=== PATIENT | female | born 1990 | race Caucasian/White ===

== ENCOUNTER 2019-09-16 09:24 | Inpatient (IN) | payer MEDICAID ==
[~2019-09-16] VITALS: Ht 162.6 cm; Wt 79.9 kg
[2019-09-16 10:41] LABS: Urine Bacteria NONE SEEN /hpf (None Seen); Urine Blood Negative /uL (Negative); Urine Mucus FEW (None Seen); Urine Specific Gravity 1.029 (1.001-1.035); Urine WBC 2 /hpf (0 - 5)
[2019-09-16 10:45] LABS: Basophils # (auto) 0 uL; Basophils % (auto) 0.3 % (0.0-2.0); Eosinophils # (auto) 0.1 uL; Eosinophils % (auto) 2.1 % (0.0-7.0); Hematocrit 41.9 % (36.0-46.0); Hemoglobin 14.1 g/dL (12.2-16.2); Lymphocytes # (auto) 1.5 uL; Lymphocytes % (auto) 25.7 % (10.0-50.0); Mean Corpuscular Hemoglobin 29.2 pg (28.0-32.0); Mean Corpuscular Hgb Conc. 33.7 g/dL (32.0-36.0); Mean Corpuscular Volume 86.8 fL (80.0-100.0); Monocytes # (auto) 0.3 uL; Monocytes % (auto) 5.7 % (0.0-12.0); Neutrophils # (auto) 3.9 uL; Neutrophils % (auto) 66.2 % (37.0-80.0); Nucleated Red Blood Cells % 0.1 %; Platelet Count (auto) 207 10^3/uL (140-450); Red Blood Cells 4.83 10^6/uL (4.0-5.20); Red Cell Distribution Width 13.7 % (11.8-14.3); White Blood Cell 5.9 10^3/uL (4.4-10.8)
[2019-09-16 11:00] LABS: Albumin 4.1 g/dL (3.4-5.0); BUN/Creatinine Ratio 12.8; Calcium 8.5 mg/dL (8.5-10.1); Potassium 3.8 mmol/L (3.5-5.1)
[2019-09-16 11:02] LABS: Bilirubin, Total 0.2 mg/dL (0.2-1.0)
[2019-09-16] MEDS ORDERED: HYDROcodone-ACET 5/325MG TAB PO PRN (11:45)
[2019-09-16] MEDS ORDERED: FAMOTIDINE (10MG/ML) 2ML VL IV ONE (11:45)
[2019-09-16] MEDS ORDERED: LEVOFLOXACIN 500MG 100 ML IV ONE (11:45)
[2019-09-16 12:04] LABS: INR 0.98 (0.9-1.15)
[2019-09-16] MEDS ORDERED: POVIDONE IODINE 10 % TOPICAL OINT 30GM TOP ONE (12:46)
[2019-09-16] MEDS ORDERED: SUCCINYLCHOLINE CHLORIDE 20 MG/ML 10ML VIAL IV ONE (12:58)
[2019-09-16] MEDS ORDERED: LIDOCAINE 1% (LOCAL ANESTH.) PF 5ml SDV ONE (12:58)
[2019-09-16] MEDS ORDERED: ROCURONIUM 10MG/ML 10ML VIAL IV ONE (13:00)
[2019-09-16] MEDS ORDERED: PROPOFOL 10 MG/ML 20 ML IV ONE (13:00)
[2019-09-16] MEDS ORDERED: MIDAZOLAM HCL 1MG/1ML-2 ML VIAL ONE (13:00)
[2019-09-16] MEDS ORDERED: METOCLOPRAMIDE HCL 5MG/ml INJ 2ml VIAL ONE (13:03)
[2019-09-16] MEDS ORDERED: fentaNYL CITRATE 100 MCG/2 ML VL ONE (13:12)
[2019-09-16] MEDS ORDERED: KETOROLAC TROMETH 30 MG/ML 1ML VIAL ONE (13:29)
[2019-09-16] MEDS ORDERED: ONDANSETRON HCL 4 MG/2 ML VIAL IV PRN (13:30)
[2019-09-16] MEDS ORDERED: HYDROmorphone HCL 2 MG/ML VL IV PRN ×2 (13:30)
[2019-09-16] MEDS ORDERED: NALOXONE HCL 0.4 MG/ML VIAL IV PRN (13:30)
[2019-09-16] MEDS ORDERED: GLYCOPYRROLATE 0.2 MG/ML 1ML VIAL ONE (13:37)
[2019-09-16] MEDS ORDERED: NEOSTIGMINE 1 MG/ML INJ (10mg/10ML VIAL) ONE (13:37)
[2019-09-16] MEDS: metroNIDAZOLE 500MG/100ML 100 ML IV SCH ×2 (14:00→22:45)
[2019-09-16] MEDS: SODIUM CHLORIDE 0.9% 1,000 ML IV SCH ×2 (14:30→21:45)
[2019-09-16 16:14] VITALS: BP 117/70
--- NOTE | 2019-09-16 16:15 | NUR ---
PT IN LOW FOWLERS, SLEEPING, EASILY AROUSABLE. DENIES PAIN AT MOMENT, REPORTS MILD NAUSEA. EFFORTLESS BREATHING ON ROOM AIR. PT ORIENTED TO ROOM'S ENVIRONMENT, BED LOCKED AND IN LOWEST POSITION, CALL LIGHT WITHIN REACH. FAMILY AT BEDSIDE. WILL CONTINUE TO MONITOR.
--- NOTE | 2019-09-16 16:17 | NUR ---
ABDOMINAL BINDER IN PLACE 3 ABDOMINAL WALL INCISIONS, CDI AT MOMENT.
[2019-09-16] MEDS: ONDANSETRON HCL 4 MG/2 ML VIAL IV PRN ×2 (17:09→22:45)
[2019-09-16] MEDS: MORPHINE SULF INJ 2 MG/ML SYRINGE 1ML IV PRN ×2 (17:10→21:33)
[2019-09-16 17:49] VITALS: BP 105/83
--- NOTE | 2019-09-16 20:38 | NUR ---
Pt transferred to private room 203 in stable cond. Pt able to amb with steady gait to new room 203. Family at bedside and pt set up new password "[id number]." Pt oriented to room and procedures and POC discussed with pt and family. Pt and family both verbalizes understanding. Bed is low, wheels are locked, and call light is with in reach.
[2019-09-16 22:00] VITALS: BP 117/69
[2019-09-17] MEDS: SODIUM CHLORIDE 0.9% 1,000 ML IV SCH ×2 (00:11→06:02)
[2019-09-17] MEDS: MORPHINE SULF INJ 2 MG/ML SYRINGE 1ML IV PRN (01:16)
[2019-09-17 05:32] LABS: Basophils # (auto) 0 uL; Eosinophils # (auto) 0 uL; Eosinophils % (auto) 0.2 % (0.0-7.0); Hematocrit 34.1 % (36.0-46.0); Hemoglobin 11.8 g/dL (12.2-16.2); Lymphocytes # (auto) 1.2 uL; Lymphocytes % (auto) 16.5 % (10.0-50.0); Mean Corpuscular Hemoglobin 29.7 pg (28.0-32.0); Mean Corpuscular Hgb Conc. 34.5 g/dL (32.0-36.0); Monocytes # (auto) 0.5 uL; Monocytes % (auto) 7.5 % (0.0-12.0); Neutrophils # (auto) 5.5 uL; Neutrophils % (auto) 75.8 % (37.0-80.0); Platelet Count (auto) 171 10^3/uL (140-450); Red Blood Cells 3.97 10^6/uL (4.0-5.20); Red Cell Distribution Width 13.4 % (11.8-14.3); White Blood Cell 7.3 10^3/uL (4.4-10.8)
[2019-09-17 05:44] LABS: Albumin 3.4 g/dL (3.4-5.0); Calcium 7.8 mg/dL (8.5-10.1); Potassium 3.4 mmol/L (3.5-5.1)
[2019-09-17 05:47] VITALS: BP 105/62
[2019-09-17 05:48] LABS: BUN/Creatinine Ratio 8.5; Bilirubin, Total 0.4 mg/dL (0.2-1.0)
[2019-09-17] MEDS: metroNIDAZOLE 500MG/100ML 100 ML IV SCH ×2 (06:01→14:06)
[2019-09-17 08:19] VITALS: BP 102/55
--- NOTE | 2019-09-17 09:50 | NUR ---
PT ADVISED AND EDUCATED ON AMBULATION BENEFITS. PER MD; IF PT AMBULATES AND FEELS WELL IN AFTERNOON; PT MAY BE DC'D HOME.
[2019-09-17] MEDS ORDERED: LEVOFLOXACIN 500MG 100 ML IV SCH (10:00)
[2019-09-17] MEDS ORDERED: FAMOTIDINE (10MG/ML) 2ML VL IV SCH (10:00)
[2019-09-17] MEDS ORDERED: POTASSIUM CHL 20 Meq TABLET PO ONE (10:15)
--- NOTE | 2019-09-17 16:26 | NUR ---
pt reports feeling well. per md chad gonzalez to dc home. Discharge instructions provided to pt. pt verbalized understanding for prescription orders and follow up appointment with surgeon on 09/21/19. educational material provided, all questions and concerns addressed. IV catheter dc'd , catheter intact, no phlebitis. Pt awaiting family transportation.
[2019-09-17] MEDS ORDERED: DOCUSATE SOD 100 MG CAP PO SCH (22:00)
== END 2019-09-17 16:40 | disposition home or self-care (01) | DRG 263 ==
LOC: ER 09:24 → OVERFLOW 09:25 → CENTRAL 12:37
PROVIDERS: ADMIT Internal Medicine; ATTEND Internal Medicine
PROC: 0FT44ZZ Resection of Gallbladder, Percutaneous Endoscopic Approach (ICD-10-PCS; principal; 2019-09-16 13:01)
DX: K80.12 Calculus of gallbladder with acute and chronic cholecystitis without obstruction (principal)
CPT/HCPCS: 36415; 74176; 76705; 80053; 81001; 81025; 82150; 83605; 83690; 85025; 85610; 85730; 86850; 86900; 86901; 87040; 87086; 96361; 96365; 96375; G0378; J0330; J1885; J1956; J2250; J2405; J2704; J3490

== ENCOUNTER 2025-05-11 15:44 | Inpatient (IN) | payer BC, MEDICAID ==
[~2025-05-11] VITALS: Ht 162.6 cm; Wt 85.8 kg
--- NOTE | 2025-05-11 17:27 | ED.PDOC ---
GI ASSESSMENT HPI Comments This is a 35 year old female presenting to the ED with chief complaint of abdominal pain. Patient reports that while at work today, she started to experiencing epigastic pain with associated diarrhea. Patient relays that her pain is similar to her gallbladder pain she used to have, but she had a cholecystectomy 6 years ago. Patient states that her pain radiates to her back and comes in waves. Patient notes that she has been on Mounjaro for the past 3 months. Patient denies any nausea, vomiting, dysuria, fever, chills, or hematemesis. Chief Complaint: Abdominal Pain Time Seen by MD: 17:22 Reviewed Notes: Nurses Notes, Medications, Allergies Allergies: Coded Allergies: NO KNOWN ALLERGIES (Unverified , 09/16/19) Home Meds No Active Prescriptions or Reported Meds Information Source: Patient Mode of Arrival: Ambulatory Timing: Hours Duration: Since onset Prehospital treatment: None Quality: Sharp Vomitus: None Stool: Loose Severity: Moderate Recent: None Recent Hx of: None Pain Location: Epigastric Modifying Factors: Nothing Associated sign and symptoms: Diarrhea, Abdominal Pain Past Medical History PAST MEDICAL HISTORY: Gallstones Surgical History: Cholecystectomy APPLICATIONS SCIENTIST History: No Pertinent APPLICATIONS SCIENTIST History Family History Family History: No family hx of Cancer, No family hx of DM, Family hx of heart mohit Social History Smoker: Non-Smoker Alcohol: Denies ETOH Use Drugs: Denies Drug Use Lives In: Home Constitutional: denies: chills, diaphoresis, fatigue, fever, malaise, sweats, weakness, others EENTM: denies: blurred vision, double vision, ear bleeding, ear discharge, ear drainage, ear pain, ear ringing, eye pain, eye redness, hearing loss, mouth pain, mouth swelling, nasal discharge, nose bleeding, nose congestion, nose pain, photophobia, tearing, throat pain, throat swelling, voice changes, others Respiratory: denies: cough, hemoptysis, orthopnea, SOB at rest, shortness of breath, SOB with excertion, stridor, wheezing, others Cardiovascular: denies: chest pain, dizzy spells, diaphoresis, Dyspnea on exertion, edema, irregular heart beat, left arm pain, lightheadedness, palpitations, PND, syncope, others Gastrointestinal: reports: abdominal pain, diarrhea; denies: abdomen distended, blood streaked bowels, constipated, dysphagia, difficulty swallowing, hematemesis, melena, nausea, poor appetite, poor fluid intake, rectal bleeding, rectal pain, vomiting, others Genitourinary: denies: abnormal vagina bleeding, burning, dyspareunia, dysuria, flank pain, frequency, hematuria, incontinence, pain, , vagina discharge, urgency, others Neurological: denies: dizziness, fainting, headache, left sided numbness, left sided weakness, numbness, paresthesia, pre-existing deficit, right sided numbness, right sided weakness, seizure, speech problems, tingling, tremors, weakness, others Musculoskeletal: denies: back pain, gout, joint pain, joint swelling, muscle pain, muscle stiffness, neck pain, others Integumetry: denies: bruises, change in color, change in hair/nails, dryness, laceration, lesions, lumps, rash, wounds, others Allergic/Immunocompromised: denies: Difficulty Healing, Frequent Infections, Hives, Itching, others Hematologic/Lymphatic: denies: anemia, blood clots, easy bleeding, easy bruising, swollen glands, others Endocrine: denies: excessive hunger, excessive sweating, excessive thirst, excessive urination, flushing, intolerance to cold, intolerance to heat, unexplained weight gain, unexplained weight loss, others Psychiatric: denies: anxiety, bipolar disorder, depression, hopeless, panic disorder, schizophrenia, sleepless, suicidal, others All Other Systems: Reviewed and Negative Physical Exam General Appearance: No Apparent Distress, Normal HEENT: Normal ENT Inspection, Pharynx Normal, TMs Normal Neck: Full Range of Motion, Non-Tender, Normal, Normal Inspection Respiratory: Chest Non-Tender, Lungs Clear, No Accessory Muscle Use, No Respiratory Distress, Normal Breath Sounds Cardiovascular: No Edema, No JVD, No Murmur, No Gallop, Normal Peripheral Pulses, Regular Rate/Rhythm Breast Exam: Deferred Gastrointestinal: No Organomegaly, No Pulsatile Mass, Normal Bowel Sounds, Soft, Tenderness (Epigastric tenderness) Genitalia: Deferred Pelvic: Deferred Rectal: Deferred Extremities: No calf tenderness, Normal capillary refill, Normal inspection, Normal range of motion, Non-tender, No pedal edema Musculoskeletal : Apperance: Normal Neurologic: Alert, statistical clerk II-XII nml as Tested, No Motor Deficits, Normal Affect, Normal Mood, No Sensory Deficits Cerebellar Function: Normal Reflexes: Normal Skin: Dry, Normal Color, Warm Lymphatic: No Adenopathy Was a procedure done? Was a procedure done?: No GI differential Dx Differential Diagnosis: Bowel Obstruction, Cholangitis, Cholecystitis, Gastroenteritis, GI hemorrhage X-Ray, Labs, Meds, VS Vital Signs Date Time Temp Pulse Resp B/P (MAP) Pulse Ox O2 Delivery O2 Flow Rate FiO2 05/11/25 16:44 97.6 77 20 107/73 (84) 97 97.6 Lab Test 05/11/25 17:17 05/11/25 16:45 Range/Units White Blood Count 11.1 H 4.4-10.8 10^3/uL Red Blood Count 4.81 4.0-5.20 10^6/uL Hemoglobin 13.9 12.2-16.2 g/dL Hematocrit 41.1 36.0-46.0 % Mean Corpuscular Volume 85.5 80.0-100.0 fL Mean Corpuscular Hemoglobin 28.9 28.0-32.0 pg Mean Corpuscular Hemoglobin Concent 33.9 32.0-36.0 g/dL Red Cell Distribution Width 13.5 11.8-14.3 % Platelet Count 213 140-450 10^3/uL Mean Platelet Volume 9.7 6.9-10.8 fL Neutrophils (%) (Auto) 83.6 H 37.0-80.0 % Lymphocytes (%) (Auto) 12.2 10.0-50.0 % Monocytes (%) (Auto) 3.6 0.0-12.0 % Eosinophils (%) (Auto) 0.3 0.0-7.0 % Basophils (%) (Auto) 0.3 0.0-2.0 % Neutrophils # (Auto) 9.2 H 1.6-8.6 10 ^3/uL Lymphocytes # (Auto) 1.3 0.4-5.4 10 ^3/uL Monocytes # (Auto) 0.4 0-1.3 10 ^3/uL Eosinophils # (Auto) 0 0-0.8 10 ^3/uL Basophils # (Auto) 0 0-0.2 10 ^3/uL Nucleated Red Blood Cells 0.1 % Sodium Level 138 136-145 mmol/L Potassium Level 3.7 3.5-5.1 mmol/L Chloride Level 105 98-107 mmol/L Carbon Dioxide Level 24 20-31 mmol/L Anion Gap 9 5-15 Blood Urea Nitrogen 13 9-23 mg/dL Creatinine 0.90 0.550-1.02 mg/dL Glomerular Filtration Rate Calc 86 >90 mL/min BUN/Creatinine Ratio 14.4 10.0-20.0 Serum Glucose 93 74-106 mg/dL Calcium Level 9.3 8.7-10.4 mg/dL Total Bilirubin 0.5 0.2-1.0 mg/dL Aspartate Amino Transferase (AST) 21 13-40 U/L Alanine Aminotransferase (ALT) 23 7-40 U/L Alkaline Phosphatase 56 46-116 U/L Total Protein 8.5 H 5.7-8.2 g/dL Albumin 5.1 H 3.2-4.8 g/dL Lipase 39 12-53 U/L Urine Color Dark-brown Yellow Urine Clarity Ex.turbid Clear Urine pH 6.0 5.0-9.0 Urine Specific [place] 1.035 1.001-1.035 Urine Protein 1+ H Negative Urine Ketones Negative Negative Urine Blood 3+ H Negative /uL Urine Nitrite Negative Negative Urine Bilirubin Negative Negative Urine Urobilinogen Normal Negative mg/dL Urine Leukocyte Esterase 3+ Negative /uL Urine RBC 6 0 - 4 /hpf Urine Microscopic WBC 85 H 0-5 /HPF Urine Squamous Epithelial Cells Few <5 /hpf Urine Amorphous Crystals Mod None Seen /hpf Urine Bacteria Mod H None Seen /hpf Urine Mucus Few None Seen Urine Glucose Normal Normal mg/dL Current Medications Medications (Trade) Dose Ordered Sig/Teja Route Start Time Stop Time Status Last Admin Ceftriaxone Sodium/Dextrose 50 ml @ 50 mls/hr ONCE ONCE IV 05/11/25 21:45 05/11/25 22:44 05/11/25 21:45 X-Ray, Labs, Meds, VS Comment Imaging: X-rays and CT scans were reviewed and interpreted by this provider, imaging shows no fractures and no pathological disease. Pending radiology review. Second CT scan with contrast showed SBO Patient was advised that treatment requires low intermittent suction through NG tube. Patient refused. Patient will be admitted for observation, surgical consult to be placed Laboratory: Labs reviewed and interpreted by this provider. Concerns of possible urinary tract infection, patient will be started on Rocephin 2 g Patient has prior medical visits reviewed. Med reconciliation performed Vital signs reviewed Time of 1ST Reevaluation: 18:22 Reevaluation 1ST: Unchanged Patient Education/Counseling: Diagnosis, Treatment, Need For Follow Up Family Education/Counseling: No Family Present SEPSIS Sepsis Screen Date sepsis recognized/suspect: May 11, 2025 Time Sepsis recognized/suspect: 1644 Recent Procedure: No On Antibiotic Therapy: No Respiratory Rate >20: No Heart Rate >90: No Temp<36 C (96.8 F) or >38.3 C: No SBP <90 or MAP <65 mmHG: No New Acute Mental Status Change: No Is the patient on CPAP, BIPAP,: No Physician Orders Ct Ab Pel Wo Con-No Oral Or Iv (05/11/25 17:11) Ct Ab Pel With Iv Con Only (05/11/25 19:24) Ceftriaxone 2gm/50ml D5w (Rocephin 2gm/5 (05/11/25 21:45) Vital Signs Date Time Temp Pulse Resp B/P (MAP) Pulse Ox O2 Delivery O2 Flow Rate FiO2 05/11/25 16:44 97.6 77 20 107/73 (84) 97 97.6 Laboratory Tests Test 05/11/25 17:17 White Blood Count 11.1 10^3/uL (4.4-10.8) H Medications Medications Dose Ordered Sig/Teja Route Start Time Stop Time Status Last Admin Dose Admin Ceftriaxone Sodium/Dextrose 50 ml @ 50 mls/hr ONCE ONCE IV 05/11/25 21:45 05/11/25 22:44 05/11/25 21:45 Departure 1 Departure Time of Disposition: 22:47 Impression: Primary Impression: Urinary tract infection Qualified Codes: N30.01 - Acute cystitis with hematuria Additional Impression: Small bowel obstruction Disposition: ADMITTED INPATIENT Condition: Fair e-Prescriptions No Active Prescriptions or Reported Meds Discharged With: Self Critical Care Note Critical Care Time?: No Stability Stability form required: No Heart Score Heart Score: Heart Score Response (Comments) Value History N/A 0 EKG N/A 0 Age N/A 0 Risk Factors N/A 0 Troponin N/A 0 Total 0 I personally scribed for SIDNEY NAPOLES MD ([email or web address]) on 05/11/25 at 17:27. Electronically submitted by Segundo Cifuentes ([email or web address]). SIDNEY NAPOLES MD May 11, 2025 17:27 BARBRA MCCLAIN [facility] May 11, 2025 22:48
--- NOTE | 2025-05-11 17:52 | DVH ---
Exam: CT CT AB PEL WO CON-NO ORAL OR IV History: abd pain Comparison Study: None TECHNIQUE: Multidetector CT of the abdomen and pelvis was performed from lung bases to pubic symphysi s. Imaging was performed without IV contrast. Axial, coronal, and sagittal multiplanar reformats were obtained from the axial data set by the technologist. RADIATION DOSE: DLP 637.62 mGy.cm; CTDI vol 12.56 mGy. Findings: Lungs: The lung bases are clear. Heart: No cardiomegaly or pericardial effusion. Liver: Unremarkable. Gallbladder: Cholecystectomy. Spleen: Unremarkable Pancreas: Unremarkable Adrenals: Unremarkable Kidneys: Unremarkable GI tract: Unremarkable : Unremarkable. Vasculature: Unremarkable Lymphadenopathy: Absent Peritoneum: No ascites Musculoskeletal: Unremarkable Soft tissues: Unremarkable Impression: 1. No acute abdominopelvic abnormalities.
[2025-05-11 17:55] LABS: Hematocrit 41.1 % (36.0-46.0); Hemoglobin 13.9 g/dL (12.2-16.2); Mean Corpuscular Hemoglobin 28.9 pg (28.0-32.0); Mean Corpuscular Volume 85.5 fL (80.0-100.0); Nucleated Red Blood Cells % 0.1 %
[2025-05-11 18:09] LABS: Alanine Aminotransferase 23 U/L (7-40); Albumin 5.1 g/dL (3.2-4.8); Alkaline Phosphatase 56 U/L (46-116); Anion Gap 9 (5-15); BUN/Creatinine Ratio 14.4 (10.0-20.0); Bilirubin, Total 0.5 mg/dL (0.2-1.0); Blood Urea Nitrogen 13 mg/dL (9-23); Calcium 9.3 mg/dL (8.7-10.4); Carbon Dioxide 24 mmol/L (20-31); Chloride 105 mmol/L (98-107); Glucose 93 mg/dL (74-106); Lipase 39 U/L (12-53); Potassium 3.7 mmol/L (3.5-5.1); Sodium 138 mmol/L (136-145); Total Protein 8.5 g/dL (5.7-8.2)
[2025-05-11] MEDS: LIDOCAINE VISCOUS 2% 15ML UD MT ONE (19:39)
[2025-05-11] MEDS: MAALOX PLUS or MAALOX 30 ML PO ONE (19:39)
[2025-05-11 19:46] LABS: Urine Amorphous Crystal MOD /hpf (None Seen); Urine Protein, UAD 1+ (Negative)
[2025-05-11] MEDS: IOHEXOL 300 MG/ML 100ML BOTTLE IJ ONE (21:12)
[2025-05-11] MEDS: cefTRIAXone 2GM/50ML D5W 50 ML IV ONE (21:45)
--- NOTE | 2025-05-11 22:00 | DVH ---
COMPUTERIZED TOMOGRAPHY ABDOMEN AND PELVIS WITH CONTRAST REASON FOR EXAM: abd pain COMPARISON: No prior study is available for comparison. TECHNIQUE: The exam was performed on a Multidetector scanner. Spiral scans were acquired from the stefano phragm to the symphysis pubis after administration of IV contrast. 2-D coronal and sagittal reformatt ed images were provided. Radiation optimization: All CT scans at this facility use at least one of th hussein dose optimization techniques: Automated exposure control mA and/or kV adjustment per patient size (includes targeted exams where dose is matched to clinical indication) or iterative reconstruction. CONTRAST: 100 cc Omnipaque 300 IV RADIATION DOSE: CTDI: 16 mGy DLP: 952 mGy-cm FINDINGS: The visualized lung bases are clear. There is no pleural effusion. There is no pericardial effusion. The spleen is not enlarged. The liver is normal in size and contour. No focal hepatic lesion is iden tified. The portal vein is patent. The gallbladder is surgically absent. The pancreas is within norm al limits. The adrenal glands are normal. The kidneys enhance symmetrically. No solid renal mass is identified. There is no hydronephrosis of either kidney. There is no abdominal aortic aneurysm. Ther e is no pathologic lymphadenopathy by size criteria. There are several small uterine fibroids. The ov ariana are unremarkable. The colonic stool burden is small. The appendix is normal. There is fluid padilla ling mildly distended loops of proximal ileum with an abrupt transition point in the lower mid abdome n posterior to the umbilicus, consistent with early/low-grade small-bowel obstruction. The distal il eum is decompressed. There is no free fluid identified in the abdomen or pelvis. There is no abdomin al aortic aneurysm. There is a 0.9 cm midline ventral abdominal wall fascial defect in the epigastric region with trace herniated fat without evidence of inflammation. No acute osseous abnormality is id entified. IMPRESSION: Early/low-grade small-bowel obstruction with an abrupt transition point in the proximal to middle por tion of the ileum. Normal appendix Tiny ventral abdominal wall fascial defect in the epigastric region containing trace herniated fat. No evidence of inflammatory change within the herniated fat.
[2025-05-11 22:30] VITALS: PULSE 75; RESP 16; O2SAT 98
[2025-05-11] MEDS: SODIUM CHLORIDE 0.9% 1,000 ML IV SCH (23:00)
--- NOTE | 2025-05-11 23:04 | DVHHP2 ---
History of Present Illness History of Present Illness Patient is 35 years old female with no past medical history og Cholelithiasis, S/P Lap Cholecystectomy came with the complaint of intractable abdominal pain. As per patient she started having sudden onset abdomen pain around 3:00 p.m. today on epigastric region, 10/10, burning, sharp in nature, radiating to the back, no aggravating factor. Patient also endorsed some nausea and feeling hot flash during pain, no vomiting. Patient reported she had 1 episode of watery diarrhea after pain started, no blood. Patient denied any fever, dysuria, chest pain, acute joint pain or swelling, rash or eating outside food. Initial lab workup revealed leukocytosis with WBC 11.1, neutrophil 83.6, lipase within normal limit 39, urinalysis revealed leukocyte esterase 3+, WBC 85, bacteria moderate. Ultrasound revealed-Diffusely echogenic hepatic parenchyma. This may be secondary to steatosis or another diffuse hepatic process. Gallbladder surgically absent. Initial CT abdomen on 05/11/25 revealed no acute abdomin opelvic abnormality. Repeat CT scan with contrast on 05/11/2025 revealed revealed-Early/low-grade small-bowel obstruction with an abrupt transition point in the proximal to middle portion of the ileum.There are several small uterine fibroids. There is a 0.9 cm midline ventral abdominal wall fascial defect in the epigastric region with trace herniated fat without evidence of inflammation. Past Medical History History of cholelithiasis, status post laparoscopic cholecystectomy Past Surgical History status post laparoscopic cholecystectomy Family History None Past Social History Denies smoking/alcoholism/drug abuse, lives with Review of Systems Review of Systems Allergy- NKDA Patient was seen today at the bedside. Cardiovascular- deny acute chest pain or shortness of breath or cough or palpitation Respiratory denies cough or short of breath or wheezing Gastrointestinal- denies any rectal bleeding or vomiting Musculoskeletal-denies acute joint swelling or tenderness or redness Neurological- denies acute dysarthria, dysphagia, change in vision Psychiatry- denies depression or SI or HI Skin- denies acute rash or purpura Allergies: Coded Allergies: NO KNOWN ALLERGIES (Unverified , 09/16/19) Medications Current Medications Medications Dose Ordered Sig/Teja Route Start Time Stop Time Status Last Admin Dose Admin Sodium Chloride 1,000 ml @ 120 mls/hr [id number] IV 05/11/25 23:00 UNV Pantoprazole Sodium 40 mg BID IV 05/12/25 10:00 UNV Exam Vital Signs Vital Signs Date Time Temp Pulse Resp B/P (MAP) Pulse Ox O2 Delivery O2 Flow Rate FiO2 05/11/25 16:44 97.6 77 20 107/73 (84) 97 97.6 Exam General examination- awake, alert, conversant HEENT- PEERLA, no acute nasal discharge Cardiovascular- S1-S2 audible, rate and rhythm regular, no murmur Respiratory- CTAB, no wheeze or rhonchi Gastrointestinal-nontender, bowel sound+. Nondistended Musculoskeletal-no acute joint swelling or tenderness or redness Lower extremity- no leg edema Neurological- cranial nerves intact, no acute dysarthria or dysphagia Psychiatry- denies depression or SI or HI Skin- no acute rash or purpura Labs/Xrays Labs Test 05/11/25 17:17 05/11/25 16:45 Range/Units White Blood Count 11.1 H 4.4-10.8 10^3/uL Red Blood Count 4.81 4.0-5.20 10^6/uL Hemoglobin 13.9 12.2-16.2 g/dL Hematocrit 41.1 36.0-46.0 % Mean Corpuscular Volume 85.5 80.0-100.0 fL Mean Corpuscular Hemoglobin 28.9 28.0-32.0 pg Mean Corpuscular Hemoglobin Concent 33.9 32.0-36.0 g/dL Red Cell Distribution Width 13.5 11.8-14.3 % Platelet Count 213 140-450 10^3/uL Mean Platelet Volume 9.7 6.9-10.8 fL Neutrophils (%) (Auto) 83.6 H 37.0-80.0 % Lymphocytes (%) (Auto) 12.2 10.0-50.0 % Monocytes (%) (Auto) 3.6 0.0-12.0 % Eosinophils (%) (Auto) 0.3 0.0-7.0 % Basophils (%) (Auto) 0.3 0.0-2.0 % Neutrophils # (Auto) 9.2 H 1.6-8.6 10 ^3/uL Lymphocytes # (Auto) 1.3 0.4-5.4 10 ^3/uL Monocytes # (Auto) 0.4 0-1.3 10 ^3/uL Eosinophils # (Auto) 0 0-0.8 10 ^3/uL Basophils # (Auto) 0 0-0.2 10 ^3/uL Nucleated Red Blood Cells 0.1 % Sodium Level 138 136-145 mmol/L Potassium Level 3.7 3.5-5.1 mmol/L Chloride Level 105 98-107 mmol/L Carbon Dioxide Level 24 20-31 mmol/L Anion Gap 9 5-15 Blood Urea Nitrogen 13 9-23 mg/dL Creatinine 0.90 0.550-1.02 mg/dL Glomerular Filtration Rate Calc 86 >90 mL/min BUN/Creatinine Ratio 14.4 10.0-20.0 Serum Glucose 93 74-106 mg/dL Calcium Level 9.3 8.7-10.4 mg/dL Total Bilirubin 0.5 0.2-1.0 mg/dL Aspartate Amino Transferase (AST) 21 13-40 U/L Alanine Aminotransferase (ALT) 23 7-40 U/L Alkaline Phosphatase 56 46-116 U/L Total Protein 8.5 H 5.7-8.2 g/dL Albumin 5.1 H 3.2-4.8 g/dL Lipase 39 12-53 U/L Urine Color Dark-brown Yellow Urine Clarity Ex.turbid Clear Urine pH 6.0 5.0-9.0 Urine Specific [place] 1.035 1.001-1.035 Urine Protein 1+ H Negative Urine Ketones Negative Negative Urine Blood 3+ H Negative /uL Urine Nitrite Negative Negative Urine Bilirubin Negative Negative Urine Urobilinogen Normal Negative mg/dL Urine Leukocyte Esterase 3+ Negative /uL Urine RBC 6 0 - 4 /hpf Urine Microscopic WBC 85 H 0-5 /HPF Urine Squamous Epithelial Cells Few <5 /hpf Urine Amorphous Crystals Mod None Seen /hpf Urine Bacteria Mod H None Seen /hpf Urine Mucus Few None Seen Urine Glucose Normal Normal mg/dL SEPSIS Sepsis Screen Date sepsis recognized/suspect: May 11, 2025 Time Sepsis recognized/suspect: 1644 Recent Procedure: No On Antibiotic Therapy: No Respiratory Rate >20: No Heart Rate >90: No Temp<36 C (96.8 F) or >38.3 C: No SBP <90 or MAP <65 mmHG: No New Acute Mental Status Change: No Is the patient on CPAP, BIPAP,: No Physician Orders Ct Ab Pel Wo Con-No Oral Or Iv (05/11/25 17:11) Ct Ab Pel With Iv Con Only (05/11/25 19:24) Admit (05/11/25 23:00) Code Status (05/11/25 23:00) Sodium Chloride 0.9% (05/11/25 23:00) Complete Blood Count (05/12/25 04:00) Comprehensive Metabolic Panel (05/12/25 04:00) Npo (Nothing By Mouth) Diet (05/12/25 Breakfast) Notify Of Changes From Base (05/11/25 23:00) Pantoprazole (Protonix) (05/11/25 23:15) Pantoprazole (Protonix) (05/12/25 10:00) Vital Signs Date Time Temp Pulse Resp B/P (MAP) Pulse Ox O2 Delivery O2 Flow Rate FiO2 05/11/25 16:44 97.6 77 20 107/73 (84) 97 97.6 Laboratory Tests Test 05/11/25 17:17 White Blood Count 11.1 10^3/uL (4.4-10.8) H Medications Medications Dose Ordered Sig/Teja Route Start Time Stop Time Status Last Admin Dose Admin Ceftriaxone Sodium/Dextrose 50 ml @ 50 mls/hr ONCE ONCE IV 05/11/25 21:45 05/11/25 22:44 DC 05/11/25 21:45 50 MLS/HR Assessment/Plan Assessment/Plan Assessment and plan # intractable abdominal pain likely due to partial small-bowel obstruction, rule out acute pancreatitis/gastritis -WBC 11.1 -Lipase- WNL -CT abdomen and pelvis-Early/low-grade small-bowel obstruction with an abrupt transition point in the proximal to middle portion of the ileum. -NPO -intermittent NG tube suction, patient refused-patient was counseled about the importance of NG suction, patient verbalized understanding -continue Zosyn 3.375 g IV Q 6 H -pantoprazole 40 mg IV b.i.d. 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 Hayes , nursing staff, Total time spent on patient evaluation, chart review, assessment and plan, discussion discussion >35 minutes Plan discussed with: Patient, Other (RN) My Orders Orders - [facility] Procedure Category Date Status Time Admit ADMIT 05/11/25 Transmitted 23:00 Code Status CODE 05/11/25 Transmitted 23:00 Sodium Chloride 0.9% PHA 05/11/25 Logged 23:00 Complete Blood Count LAB 05/12/25 Verified 04:00 Comprehensive LAB 05/12/25 Verified Metabolic Panel 04:00 Npo (Nothing By DIET 05/12/25 Transmitted Mouth) Diet Breakfast Notify Of Changes BHAKTI 05/11/25 In Process From Base 23:00 Pantoprazole PHA 05/11/25 Logged (Protonix) 23:15 Pantoprazole PHA 05/12/25 Logged (Protonix) 10:00 Date of Service: May 11, 2025 Billing Provider: SHADI HAYES MD Common Visit Codes: 15675-ISRINAS INP/OBS CARE (HIGH) Secondary Visit Codes: 49939-GIKOOEQT CARE PLAN 30 MINUTES [facility] May 11, 2025 23:04
[2025-05-11] MEDS: PANTOPRAZOLE 40 MG/10 ML VIAL INJ IV ONE (23:40)
[2025-05-11] MEDS: PIPERACILLIN-TAZOB 3.375GM 100 ML IV ONE (23:41)
--- NOTE | 2025-05-11 23:48 | DVH ---
ULTRASOUND ABDOMEN, LIMITED RIGHT UPPER QUADRANT: REASON FOR EXAM: pancreatitis. Abdominal pain x1 day. History of cholecystectomy 6 years ago. TECHNIQUE: Real-time sector scans in the transverse and longitudinal planes were obtained through th e right upper quadrant of the abdomen. FINDINGS: The liver is of normal size and contour. The liver is diffusely echogenic. There is no int rahepatic nor extrahepatic biliary ductal dilatation. There is hepatopetal flow in the main portal ve in. The hepatic veins are patent. The common bile duct measures 7 mm. The gallbladder is absent. Th ere is no sonographic Umana's sign. The visualized portion of the pancreas is unremarkable. The right kidney measures 8.9 cm. No hydronephrosis or nephrolithiasis is identified. There is no e vidence of right renal mass or cyst. The visualized portions of the abdominal aorta demonstrate no evidence of aneurysmal dilation. The v isualized inferior vena cava is unremarkable. There is no free fluid identified in the right upper quadrant. IMPRESSION: Diffusely echogenic hepatic parenchyma. This may be secondary to steatosis or another diffuse hepatic process. Correlate clinically and with liver function tests. Gallbladder surgically absent.
[2025-05-12] MEDS: PIPERACILLIN-TAZOB 3.375GM 100 ML IV SCH
[2025-05-12 01:25] VITALS: BP 120/74; PULSE 69; RESP 18; TEMP 97.5; O2SAT 97
[2025-05-12 01:31] VITALS: BP 120/74; PULSE 69; RESP 18; TEMP 97.5; O2SAT 98
[2025-05-12] MEDS ORDERED: TIRZ2.5I SC (04:31)
[2025-05-12 05:00] VITALS: BP 111/70; PULSE 71; RESP 18; TEMP 97.5; O2SAT 98
[2025-05-12 08:00] VITALS: PULSE 68; RESP 18; O2SAT 98
[2025-05-12 08:25] LABS: Alanine Aminotransferase 24 U/L (7-40); Alkaline Phosphatase 54 U/L (46-116); Anion Gap 11 (5-15); BUN/Creatinine Ratio 9.9 (10.0-20.0); Calcium 9.9 mg/dL (8.7-10.4); Carbon Dioxide 22 mmol/L (20-31); Chloride 105 mmol/L (98-107); Glucose 75 mg/dL (74-106); Sodium 138 mmol/L (136-145)
[2025-05-12 08:26] LABS: Bilirubin, Total 0.6 mg/dL (0.2-1.0); Hematocrit 41.5 % (36.0-46.0); Hemoglobin 14.4 g/dL (12.2-16.2); Mean Corpuscular Hemoglobin 29.5 pg (28.0-32.0); Mean Corpuscular Volume 85.4 fL (80.0-100.0); Nucleated Red Blood Cells % 0.2 %
[2025-05-12] MEDS ORDERED: GASTROGRAFIN 120 ML SOL ONE (08:27)
[2025-05-12 08:31] LABS: Albumin 4.9 g/dL (3.2-4.8); Blood Urea Nitrogen 8 mg/dL (9-23); Potassium 3.1 mmol/L (3.5-5.1); Total Protein 8.3 g/dL (5.7-8.2)
[2025-05-12 09:00] VITALS: BP 116/62; PULSE 71; RESP 16; TEMP 98.3; O2SAT 100
[2025-05-12] MEDS: PANTOPRAZOLE 40 MG/10 ML VIAL INJ IV SCH (10:08)
--- NOTE | 2025-05-12 12:20 | DVHINCON2 ---
Date of service: May 12, 2025 Family History: Patient reports no known family medical history. Allergies: Coded Allergies: NO KNOWN ALLERGIES (Unverified , 09/16/19) Home Meds Reported Medications Tirzepatide (Mounjaro) 2.5 Mg/0.5 Ml Inj, 2.5 MG SC, INJ 05/12/25 Current Medications Current Medications Medications (Trade) Dose Ordered Sig/Teja Route PRN Reason Start Time Stop Time Status Last Admin Sodium Chloride 1,000 ml @ 120 mls/hr Q8H20M IV 05/11/25 23:00 05/11/25 23:00 Pantoprazole Sodium (Protonix) 40 mg BID IV 05/12/25 10:00 05/12/25 10:08 Piperacillin Sod/ Tazobactam Sod 100 ml @ 25 mls/hr Q6HR IV 05/12/25 00:00 05/12/25 06:29 Vital Signs Vital Signs Date Time Temp Pulse Resp B/P (MAP) Pulse Ox O2 Delivery O2 Flow Rate FiO2 05/12/25 09:00 98.3 71 16 116/62 (80) 100 98.3 05/12/25 08:00 Room Air* 0 21 Labs/Diagnostic Data Labs Test 05/12/25 06:09 05/11/25 17:17 05/11/25 16:45 Range/Units White Blood Count 8.2 # 4.4-10.8 10^3/uL Red Blood Count 4.86 4.0-5.20 10^6/uL Hemoglobin 14.4 12.2-16.2 g/dL Hematocrit 41.5 36.0-46.0 % Mean Corpuscular Volume 85.4 80.0-100.0 fL Mean Corpuscular Hemoglobin 29.5 28.0-32.0 pg Mean Corpuscular Hemoglobin Concent 34.6 32.0-36.0 g/dL Red Cell Distribution Width 13.6 11.8-14.3 % Platelet Count 217 140-450 10^3/uL Mean Platelet Volume 10.8 6.9-10.8 fL Neutrophils (%) (Auto) 67.9 37.0-80.0 % Lymphocytes (%) (Auto) 25.4 10.0-50.0 % Monocytes (%) (Auto) 5.7 0.0-12.0 % Eosinophils (%) (Auto) 0.8 0.0-7.0 % Basophils (%) (Auto) 0.2 0.0-2.0 % Neutrophils # (Auto) 5.6 1.6-8.6 10 ^3/uL Lymphocytes # (Auto) 2.1 0.4-5.4 10 ^3/uL Monocytes # (Auto) 0.5 0-1.3 10 ^3/uL Eosinophils # (Auto) 0.1 0-0.8 10 ^3/uL Basophils # (Auto) 0 0-0.2 10 ^3/uL Nucleated Red Blood Cells 0.2 % Sodium Level 138 136-145 mmol/L Potassium Level 3.1 L 3.5-5.1 mmol/L Chloride Level 105 98-107 mmol/L Carbon Dioxide Level 22 20-31 mmol/L Anion Gap 11 5-15 Blood Urea Nitrogen 8 L 9-23 mg/dL Creatinine 0.81 0.550-1.02 mg/dL Glomerular Filtration Rate Calc 98 >90 mL/min BUN/Creatinine Ratio 9.9 L 10.0-20.0 Serum Glucose 75 74-106 mg/dL Hemoglobin A1c 5.1 <5.7 % A1C Calcium Level 9.9 8.7-10.4 mg/dL Total Bilirubin 0.6 0.2-1.0 mg/dL Aspartate Amino Transferase (AST) 21 13-40 U/L Alanine Aminotransferase (ALT) 24 7-40 U/L Alkaline Phosphatase 54 46-116 U/L Total Protein 8.3 H 5.7-8.2 g/dL Albumin 4.9 H 3.2-4.8 g/dL Vitamin B12 Level 253 211-911 pg/mL Vitamin D 25-Hydroxy 11.7 L 30.0-100 ng/mL Folic Acid 7.55 >5.38 ng/mL Magnesium Level 2.4 1.6-2.6 mg/dL Lipase 39 12-53 U/L Thyroid Stimulating Hormone (TSH) 4.25 0.55-4.78 uIU/mL Urine Color Dark-brown Yellow Urine Clarity Ex.turbid Clear Urine pH 6.0 5.0-9.0 Urine Specific Rison 1.035 1.001-1.035 Urine Protein 1+ H Negative Urine Ketones Negative Negative Urine Blood 3+ H Negative /uL Urine Nitrite Negative Negative Urine Bilirubin Negative Negative Urine Urobilinogen Normal Negative mg/dL Urine Leukocyte Esterase 3+ Negative /uL Urine RBC 6 0 - 4 /hpf Urine Microscopic WBC 85 H 0-5 /HPF Urine Squamous Epithelial Cells Few <5 /hpf Urine Amorphous Crystals Mod None Seen /hpf Urine Bacteria Mod H None Seen /hpf Urine Mucus Few None Seen Urine Glucose Normal Normal mg/dL Assessment 05/12/25 35 year old female presented to the hospital with partial bowel obstruction which is now resolved s/p Gastrografin small bowel series which shows contrast in the colon ,patient has had several bowel movements since the x ray completion. will allow po liquids, no indication for surgical intervention. Plan discussed with: Patient TEJ PATINO MD May 12, 2025 12:20
--- NOTE | 2025-05-12 12:37 | DVH ---
Procedure: XY SMALL BOWEL SERIES-W GASTROGRA Reason for study/Clinical History: r/o obstruction Comparison Study: None Technique: Single contrast small bowel series performed. 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 Contrast is identified within the colon by 3 hours. This represents a mild delay in transit time wit hout obstruction.
[2025-05-12 12:44] VITALS: BP 121/78; PULSE 77; RESP 18; TEMP 98.1; O2SAT 97
[2025-05-12] MEDS ORDERED: MET500T PO (14:41)
[2025-05-12] MEDS ORDERED: LEVO500T91 PO (14:41)
--- NOTE | 2025-05-12 14:43 | DVHDS2 ---
Discharge Summary Date of Admission May 11, 2025 at 23:00 Date of Discharge: May 12, 2025 Labs/Diagnostic Data: Laboratory Results Test 05/12/25 06:09 05/11/25 17:17 05/11/25 16:45 White Blood Count 8.2 10^3/uL (4.4-10.8) Red Blood Count 4.86 10^6/uL (4.0-5.20) Hemoglobin 14.4 g/dL (12.2-16.2) Hematocrit 41.5 % (36.0-46.0) Mean Corpuscular Volume 85.4 fL (80.0-100.0) Mean Corpuscular Hemoglobin 29.5 pg (28.0-32.0) Mean Corpuscular Hemoglobin Concent 34.6 g/dL (32.0-36.0) Red Cell Distribution Width 13.6 % (11.8-14.3) Platelet Count 217 10^3/uL (140-450) Mean Platelet Volume 10.8 fL (6.9-10.8) Neutrophils (%) (Auto) 67.9 % (37.0-80.0) Lymphocytes (%) (Auto) 25.4 % (10.0-50.0) Monocytes (%) (Auto) 5.7 % (0.0-12.0) Eosinophils (%) (Auto) 0.8 % (0.0-7.0) Basophils (%) (Auto) 0.2 % (0.0-2.0) Neutrophils # (Auto) 5.6 10 ^3/uL (1.6-8.6) Lymphocytes # (Auto) 2.1 10 ^3/uL (0.4-5.4) Monocytes # (Auto) 0.5 10 ^3/uL (0-1.3) Eosinophils # (Auto) 0.1 10 ^3/uL (0-0.8) Basophils # (Auto) 0 10 ^3/uL (0-0.2) Nucleated Red Blood Cells 0.2 % Sodium Level 138 mmol/L (136-145) Potassium Level 3.1 mmol/L (3.5-5.1) Chloride Level 105 mmol/L (98-107) Carbon Dioxide Level 22 mmol/L (20-31) Anion Gap 11 (5-15) Blood Urea Nitrogen 8 mg/dL (9-23) Creatinine 0.81 mg/dL (0.550-1.02) Glomerular Filtration Rate Calc 98 mL/min (>90) BUN/Creatinine Ratio 9.9 (10.0-20.0) Serum Glucose 75 mg/dL (74-106) Hemoglobin A1c 5.1 % A1C (<5.7) Calcium Level 9.9 mg/dL (8.7-10.4) Total Bilirubin 0.6 mg/dL (0.2-1.0) Aspartate Amino Transferase (AST) 21 U/L (13-40) Alanine Aminotransferase (ALT) 24 U/L (7-40) Alkaline Phosphatase 54 U/L (46-116) Total Protein 8.3 g/dL (5.7-8.2) Albumin 4.9 g/dL (3.2-4.8) Vitamin B12 Level 253 pg/mL (211-911) Vitamin D 25-Hydroxy 11.7 ng/mL (30.0-100) Folic Acid 7.55 ng/mL (>5.38) Magnesium Level 2.4 mg/dL (1.6-2.6) Lipase 39 U/L (12-53) Thyroid Stimulating Hormone (TSH) 4.25 uIU/mL (0.55-4.78) Urine Color Dark-brown (Yellow) Urine Clarity Ex.turbid (Clear) Urine pH 6.0 (5.0-9.0) Urine Specific [place] 1.035 (1.001-1.035) Urine Protein 1+ (Negative) Urine Ketones Negative (Negative) Urine Blood 3+ /uL (Negative) Urine Nitrite Negative (Negative) Urine Bilirubin Negative (Negative) Urine Urobilinogen Normal mg/dL (Negative) Urine Leukocyte Esterase 3+ /uL (Negative) Urine RBC 6 /hpf (0 - 4) Urine Microscopic WBC 85 /HPF (0-5) Urine Squamous Epithelial Cells Few /hpf (<5) Urine Amorphous Crystals Mod /hpf (None Seen) Urine Bacteria Mod /hpf (None Seen) Urine Mucus Few (None Seen) Urine Glucose Normal mg/dL (Normal) Other Laboratory Tests 05/12/25 06:09 Brief Hx & Hospital Course: see dictated note Condition at Discharge: Good Final Diagnosis/Problems List abd pain Discharge Disposition: Home Discharge Instruct/Medications Diet: Regular Activity: No Restrictions, As Tolerated Follow Up/Referral: fu with pcp Medications: script to pharmacy Scheduled Levofloxacin Hemihydrate (Levaquin 500 Mg), 500 MG PO DAILY Metronidazole (Metronidazole), 500 MG PO TID Miscellaneous Medications Tirzepatide (Mounjaro), 2.5 MG SC, (Reported) Discharge Statement: "Patient was advised to return to the ER or call 911 if any headaches, dizziness, shortness of breath, chest pain, abdominal pain, bleeding, fevers, or worsening of medical condition. Patient was counseled about treatment plan, medications, possible side effects, patientverbalized understanding. All questions were answered to the best of my ability. This discharge took greater then 30 minutes in planning, reviewing documentation, counseling the patient, and discussing with other team members." ASSESSMENT ASSESSMENT Assessment abd pain Date of Service: May 12, 2025 Billing Provider: HILLARY WILD MD Common Visit Codes: 77570-SJA/OBS DISCH DAY >30min HILLARY WILD MD May 12, 2025 14:43
[2025-05-12] MEDS ORDERED: POTASSIUM CHL 20 Meq TABLET PO ONE (14:45)
--- NOTE | 2025-05-12 15:52 | DVHDS ---
DATE OF DISCHARGE: 05/12/2025 HISTORY OF PRESENT ILLNESS: The patient is a 35-year-old lady who came with complaints of abdominal pain and diarrhea and has previous history of gallstones status post surgery. HOSPITAL COURSE: The patient had a CT of abdomen and pelvis that showed evidence of a partial small bowel obstruction. The patient had a liver ultrasound that showed evidence of hepatic steatosis. The patient underwent a small bowel followthrough that showed no obstruction. She was seen in surgical consult by Dr. Macdonald. The patient currently is doing well and is tolerating her diet. She will be discharged home. The patient had evidence of urinary tract infection. She will be placed on Levaquin 500 mg daily for 5 days with Flagyl 500 mg t.i.d. for 5 days. She will follow up with her primary in 1-2 weeks. FINAL DIAGNOSES: * Abdominal pain with questionable partial small bowel obstruction. * UTI. * Obesity. * Fatty liver. Time spent in discharge planning and review of plan with the patient and nursing was 36 minutes. MD NIEVES Milligan/DANYELL TID: [id number] RECEIPT: [id number]
== END 2025-05-12 16:30 | disposition home or self-care (01) | DRG 389 ==
LOC: ER 15:44 → EEVIPCON 15:44 → OVERFLOW 23:00 → WEST WING 23:57
PROVIDERS: ADMIT Internal Medicine; ATTEND Internal Medicine
DX: K56.600 Partial intestinal obstruction, unspecified as to cause (principal); N30.00 Acute cystitis without hematuria; D25.9 Leiomyoma of uterus, unspecified; K76.0 Fatty (change of) liver, not elsewhere classified; Z68.32 Body mass index [BMI] 32.0-32.9, adult; E66.9 Obesity, unspecified; Z90.49 Acquired absence of other specified parts of digestive tract
CPT/HCPCS: 36415; 74176; 74177; 74250; 76705; 80053; 81001; 82306; 82607; 82746; 83036; 83690; 83735; 84443; 85025; 87086; 96365; G0378; J2470; J2543